=== PATIENT | female | born 1980 | race Caucasian/White ===

== ENCOUNTER 2019-01-19 22:54 | Emergency (ER) | payer OTHER ==
[2019-01-19 23:07] VITALS: TEMP 98.1; BMI 26.4
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
[2019-01-20] MEDS ORDERED: IBUPROFEN 600 MG TABLET (FP) PO ONE ×2 (01:12→01:20)
[2019-01-20] MEDS ORDERED: SODIUM CHLORIDE 0.9% 500 ML INFUS.BAG IV ONE ×2 (02:14→04:56)
[2019-01-20] MEDS ORDERED: INSULIN REGULAR HUMAN 100 UNITS/ML *VIAL IVPUSH ONE (02:14)
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
[2019-01-20] MEDS ORDERED: INSULIN REGULAR HUMAN 100 UNITS/ML *VIAL ONE (03:04)
[2019-01-20 03:29] LABS: BASO % 0.6 % (0-2.0); EOS % 0.7 % (0-4.5); HEMATOCRIT 44.3 % (32.4-45.2); HEMOGLOBIN 15.4 GM/dL (10.7-15.3); LYMPH % 34.8 % (8-40); MCH 31.2 pg (25.7-33.7); MCHC 34.8 g/dl (32.0-36.0); MEAN CELL VOLUME 89.6 fl (80-96); MEAN PLT VOLUME 9.4 fl (7.5-11.1); MONO % 6.5 % (3.8-10.2); NEUT % 57.4 % (42.8-82.8); PLATELET COUNT 205 K/MM3 (134-434); RBC 4.94 M/mm3 (3.60-5.2); RDW 12.2 % (11.6-15.6); WHITE BLOOD COUNT 8.6 K/mm3 (4.0-10.0)
[2019-01-20 04:42] LABS: CALCIUM 9.8 mg/dL (8.5-10.1); CREATININE 0.9 mg/dL (0.55-1.3); POTASSIUM 4.7 mmol/L (3.5-5.1)
[2019-01-20 06:06] VITALS: BP 121/65; PULSE 98
--- NOTE | 2019-01-20 11:54 | EKG ---
Test Reason : Blood Pressure : / mmHG Vent. Rate : 104 BPM Atrial Rate : 104 BPM P-R Int : 162 ms QRS Dur : 086 ms QT Int : 354 ms P-R-T Axes : 056 061 051 degrees QTc Int : 465 ms SINUS TACHYCARDIA OTHERWISE NORMAL ECG NO PREVIOUS ECGS AVAILABLE Confirmed by MEDINA HYDE, STEPHON ([id number]) on 01/20/2019 11:53:44 AM Referred By: Confirmed By:STEPHON HANEY MD
== END 2019-01-20 06:06 | disposition home or self-care (01) ==
LOC: JER 22:54
PROC: 3E033VG Introduction of Insulin into Peripheral Vein, Percutaneous Approach (ICD-10-PCS; principal; 2019-01-19)
PROC: 3E0337Z Introduction of Electrolytic and Water Balance Substance into Peripheral Vein, Percutaneous Approach (ICD-10-PCS; 2019-01-19)
DX: R07.9 Chest pain, unspecified (principal); R73.9 Hyperglycemia, unspecified; V43.62XA Car passenger injured in collision with other type car in traffic accident, initial encounter; Y92.488 Other paved roadways as the place of occurrence of the external cause; Y93.89 Activity, other specified; Y99.8 Other external cause status
CPT/HCPCS: 36415; 71046-TC-FY; 80048; 82009; 82550; 82962; 84484; 85025; 93005; 93010; 99282-25